=== PATIENT | male | born 1980 | race Caucasian/White ===

== ENCOUNTER 2021-01-14 09:48 | Inpatient (IN) | payer OTHER, SELFPAY ==
[2021-01-14] VITALS (9 sets, daily range): BP systolic 126–142; BP diastolic 83–93; PULSE 101–130; RESP 18–36; TEMP 36.1–37.2; O2SAT 85–99
--- NOTE | ~2021-01-14 | CT_ITS ---
EXAMINATION: CTA chest PE protocol DATE: 01/14/2021 11:36 INDICATION: COVID positive. Shortness of breath. Elevated d-dimer. TECHNIQUE: Computed tomography (CT) pulmonary angiogram of the chest was performed with 100 mL Omnipa que-350 intravenous contrast. Additional 3D reconstructions utilizing coronal maximum intensity proje ction (MIP) were performed. Automated exposure control and iterative reconstruction technique were em ployed. The dose-length product was 927.37 mGy-cm. COMPARISON: None FINDINGS: Good contrast opacification of the pulmonary arteries. There is moderate streak artifact from dense c ontrast in the superior vena cava and right atrium. Mild scattered respiratory motion artifact which does not significantly limit evaluation. No pulmonary embolism. Bilateral patchy groundglass opacitie s with peripheral and lower lung predominance with appearance most suspicious for COVID pneumonia. No pleural effusion or pneumothorax. Heart size is normal. No pericardial effusion. Thoracic aorta is n ormal in caliber with no dissection. Mild bilateral hilar and mediastinal lymphadenopathy which is li jakub reactive. Diffuse hepatic steatosis. Large calcified gallstone near the neck of the normal-appea ring gallbladder with no wall thickening or pericholecystic inflammatory change to suggest acute chol ecystitis. Moderate thoracic spondylosis. IMPRESSION: 1. No pulmonary embolism. 2. Diffuse peripheral and lower lung predominant patchy groundglass opacities with appearance most french spicious for COVID pneumonia. Pulmonary edema considered less likely. 3. Mild likely reactive mediastinal and bilateral hilar lymphadenopathy. 4. Cholelithiasis. 5. Diffuse hepatic steatosis. Reviewed, dictated and finalized at location B. PERSON IMPRESSION: 1. No pulmonary embolism. 2. Diffuse peripheral and lower lung predominant patchy groundglass opacities w ith appearance most suspicious for COVID pneumonia. Pulmonary edema considered less likely. 3. Mild likely reactive mediastinal and bilateral hilar lymphadenopathy. 4. Cholelithiasis. 5. Diffuse hepatic steatosis.
--- NOTE | 2021-01-14 10:07 | ECG_ITS ---
Measurements Intervals [place] Rate: 117 P: 16 RI: 141 QRS: -39 QRSD: 95 T: 10 QT: 307 QTc: 430 Interpretive Statements SINUS TACHYCARDIA LEFT AXIS DEVIATION POOR R WAVE PROGRESSION, ANTERIOR LEADS BORDERLINE T WAVE ABNORMALITY- INFERIOR LEADS ABNORMAL ECG Electronically Signed On 01-14-2021 16:30:24 [employer] by Rodolfo Rain D.O.
[2021-01-14 10:28] LABS: Basophils Percent Auto 0.3 % (0.2-1.2); Eosinophils Percent Auto 0.3 % (0-4.4); Hematocrit 49.1 % (42.0-52.0); Hemoglobin 16.4 g/dL (14.0-18.0); Immature Granulocyte Absolute 0.15 K/mm3 (0.00-0.031); Immature Granulocyte Percent A 1.3 % (0-0.5); Lymphocytes Absolute Auto 1.42 K/mm3 (0.9-3.2); Lymphocytes Percent Auto 11.9 % (18.3-44.2); Mean Corpuscular HGB Conc 33.4 g/dl (32-36); Mean Corpuscular Hemoglobin 28.2 pg (26-34); Mean Corpuscular Volume 84.5 fl (80-100); Mean Platelet Volume 10.6 fl (7.4-10.4); Monocytes Absolute Auto 0.8 K/mm3 (0.1-0.6); Monocytes Percent Auto 6.4 % (2.6-8.5); Neutrophils Absolute Auto 9.5 K/mm3 (1.3-6.7); Neutrophils Percent Auto 79.8 % (45.5-73.1); Platelet Count Result 230 k/mm3 (150-375); Red Blood Count 5.81 M/mm3 (4.6-6.20); Red Cell Distribution Width 13.8 % (11.5-14.5); White Blood Count 11.9 K/mm3 (4.5-10.0)
[2021-01-14 10:39] LABS: INR 0.9; Prothrombin Time 12.3 Seconds (11.1-14.7)
[2021-01-14 10:45] LABS: Alanine Aminotransferase 40 U/L (4-50); Albumin Level 4.1 g/dL (3.5-5.1); Alkaline Phosphatase 85 U/L (38-126); Anion Gap 15 mmol/L (8-16); Aspartate Amino Transferase 75 U/L (17-59); Bilirubin,Total 0.6 mg/dL (0.2-1.3); Blood Urea Nitrogen 18 mg/dL (9-20); Calcium 8.7 mg/dL (8.4-10.2); Carbon Dioxide 20 mmol/L (22-30); Chloride 103 mmol/L (98-107); Estimated CRCL calculation 110 ml/min; Estimated Glomerular Filt Rate > 60; Glucose 142 mg/dL (65-110); Potassium 3.7 mmol/L (3.4-5.0); Sodium 138 mmol/L (137-145)
[2021-01-14 11:10] LABS: Partial Thromboplastin Time 34.8 SECONDS (22.3-36.8)
[2021-01-14 11:12] LABS: D Dimer 1.89 ug/mL (<0.48)
[2021-01-14 11:31] LABS: Lactic Acid Reflex 1.4 mmol/L (0.7-2.1)
[2021-01-14 11:39] LABS: Lactate Dehydrogenase 2266 U/L (313-618)
--- NOTE | 2021-01-14 12:26 | ED.SOB ---
HPI - SOB/Dyspnea General Chief Complaint: Shortness of Breath/Dyspnea Stated Complaint: COVID + Time Seen by Provider: 01/14/21 10:16 Source: patient Mode of arrival: ambulatory Limitations: no limitations History of Present Illness HPI Narrative: This is a 40-year-old male that presents to the emergency department for shortness of breath ongoing over the last couple of days. Reports he tested positive for Covid on 01/09 at a [facility] in [place]. He has had symptoms for about a week and a half. He is not Covid vaccinated. Reports cough, congestion, shortness of breath. Denies fever, chest pain, or lower extremity edema. Related Data Home Medications Medication Instructions Recorded Confirmed No Home Medications 01/14/21 01/14/21 Allergies Allergy/AdvReac Type Severity Reaction Status Date / Time No Known Allergies Allergy Verified 01/14/21 10:15 Review of Systems Review of Systems: CONSTITUTIONAL: Denies fever ENT: Reports rhinorrhea, congestion, sore throat CARDIOVASCULAR: Denies chest pain, or edema. RESPIRATORY: Reports cough and dyspnea. All systems reviewed & are unremarkable except as noted in HPI and below PMFSH Past Medical History Medical History (Updated 01/14/21 @ 15:26 by Allyn Arenas PA-C) No active medical problems Social History Social History (Updated 01/14/21 @ 12:44 by Allyn Arenas PA-C) Smoking status: Never smoker Exam Narrative: GENERAL: Well-appearing, well-nourished, and in no acute distress. HEAD: Normocephalic, atraumatic. EYES: EOMI. ENT: Nares clear, no rhinorrhea or epistaxis. Mucous membranes moist. Oropharynx without tonsillar hypertrophy exudate or other lesions. Bilateral TMs pearly hawkins non-bulging NECK: Supple. No adenopathy or masses. CHEST: Rales noted at the lung bases. No respiratory distress. No wheezes or rhonchi HEART: Tachycardic, regular rhythm. No murmur heard. Normal peripheral pulses. ABDOMEN: Soft, nontender, nondistended, normal active bowel sounds. EXTREMITIES: Normal range of motion. No edema. SKIN: Warm, dry, no rash. NEURO: No focal deficits. Alert and oriented x3. PSYCH: Normal mood and affect Course Consultations Consultation #1: Spoke with hospitalist about patient and workup who accepts admission Date: 01/14/21 Vital Signs Vital signs: Vital Signs Temperature 98.9 F 01/14/21 09:53 Pulse Rate 130 H 01/14/21 09:53 Respiratory Rate 36 H 01/14/21 09:53 Blood Pressure 134/89 01/14/21 09:53 Pulse Oximetry 85 L 01/14/21 09:53 Temperature 98.9 F 01/14/21 09:53 Pulse Rate 112 H 01/14/21 12:31 Respiratory Rate 18 01/14/21 12:31 Blood Pressure 126/83 01/14/21 12:31 Pulse Oximetry 99 01/14/21 12:31 MDM - SOB/Dyspnea MDM Narrative Medical decision making narrative: Patient presents to the emergency department Covid positive with shortness of breath. Patient is afebrile and nontoxic appearing. Noted to be hypoxic on room air on arrival. Placed on 4L NC with improvement. CBC with mild leukocytosis to 11.9. Metabolic panel with mild transaminitis. LDH and ferritin elevated. Lactic acid is normal. EKG shows sinus tachycardia, no acute ST changes. D-dimer was elevated, so CTA of the chest was obtained. This is without evidence of pulmonary embolism. Shows diffuse peripheral and lower lung predominant patchy groundglass opacities consistent with Covid pneumonia. Shows reactive lymphadenopathy. Shows cholelithiasis and diffuse hepatic steatosis. Patient was updated on case findings. Started on dexamethasone and remdesivir. Will be admitted for further management of Covid pneumonia with hypoxia. Spoke with hospitalist about patient and workup who accepts admission Lab Data Attestation: I reviewed the patient's lab results. Result diagrams: 01/14/21 10:13 01/14/21 10:13 Labs: Lab Results 01/14/21 01/14/21 01/14/21 Range/Units 10:13 10:13 10:13 WBC 11.9 H (4.5-10.0)
[2021-01-14] MEDS: DEXAMETHASONE 2 MG TABLET 6 MG PO (12:43)
[2021-01-14] MEDS: REMDESIVIR 200 MG/NS 250 ML 200 MG/250 ML BAG 250 MG IVPB (13:04)
[2021-01-14] MEDS: SODIUM CHLORIDE 0.9% IV 500 ML 999 ML IV CONT (14:05)
--- NOTE | 2021-01-14 16:04 | ADMGEN ---
This patient, Federico Stallworth, was admitted to [facility] Room 300-01. Patient/family oriented to hospital policies and general routines including ID bracelet, bed and alarms, visiting hours, pain management, procedures, bathroom and other care routines, personal items, smoking policy, room service/diet, and visiting hours. Information on how to activate the Rapid Response Team has been discussed. Patient/Family are encouraged to report perceived risks to care and to ask questions if they do not understand what they are told or what they should do. Patient in bed resting comfortably at this time with no complaints. Will continue to monitor.
--- NOTE | 2021-01-14 18:00 | PM.IMHP ---
H&P: HPI History of Present Illness Date/Time: 01/14/21 18:00 Chief Complaint: Shortness of breath, COVID positive. Narrative: This is a 40-year-old male with no significant medical history who tested positive for COVID 19 on 01/09/2021 at [facility] who presented to the emergency department earlier today with complaints of shortness of breath. He has not been feeling well for approximately 1 week with a nagging cough occasionally productive of clear phlegm, decreased appetite, significant fatigue, and some loose stools. He has been taking NyQuil at night time which help somewhat with his sleep though he continues to have a pretty neg in cough. Over the last couple of days he has been feeling short of breath and his mom encouraged him to come to the ER today as she is also battling COVID and is being admitted to an outside facility for COVID pneumonia. On arrival to the emergency department his SpO2 was 85% on room air and he is currently requiring 3 L nasal cannula to maintain his oxygen saturations in the mid 90s. Chest CTA showed no evidence of pulmonary embolism but did note diffuse peripheral and lower lung predominant opacities suspicious for COVID pneumonia and he is being admitted in this setting. He denies fever, chills, sweats, chest pain, pleuritic pain, and vomiting. He did not receive the COVID vaccination. Review of Systems Review of Systems: Twelve systems were reviewed. No headache or neck ache. No anosmia or dysgeusia. He has had a decrease in appetite however. No nausea or vomiting. Some loose stools. No orthopnea, PND, or lower extremity edema. Except as documented, all other systems were reviewed and are negative. [facility] Past Medical History Medical History (Updated 01/14/21 @ 21:05 by Tati Johnson PA-C) Hepatic steatosis Diffuse hepatic steatosis noted CT on 01/14/2021. No active medical problems Surgical History Surgical History (Updated 01/14/21 @ 20:56 by Tati Johnson PA-C) No history of previous surgery Family History Family History Mother Diabetes mellitus Social History Social History (Updated 01/14/21 @ 20:57 by Tati Johnson PA-C) Social History: Surrogate decision maker: Jorge (father) or Davon (brother) Albajermainejerri. Code status: Full code. Smoking status: Never smoker Alcohol intake: never Substance use: never Substance use type: does not use Additional living arrangements comments: The patient lives in his own home in [place]. 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 Meds Home Medications and Allergies Home Medications Medication Instructions Recorded Confirmed Type No Home Medications 01/14/21 01/14/21 History Allergies Allergy/AdvReac Type Severity Reaction Status Date / Time No Known Allergies Allergy Verified 01/14/21 10:15 Vital Signs Vital Signs - 24 hr 01/14/21 09:53 01/14/21 10:06 01/14/21 10:14 Temperature 98.9 F Pulse Rate 130 H 121 H Respiratory Rate 36 H 31 H Blood Pressure 134/89 139/93 H Pulse Oximetry 85 L 93 93 01/14/21 12:31 01/14/21 16:11 01/14/21 16:25 Temperature Pulse Rate 112 H 112 H Respiratory Rate 18 Blood Pressure 126/83 Pulse Oximetry 99 91 01/14/21 16:45 01/14/21 20:00 Temperature 97.0 F L 99.0 F Pulse Rate 110 H 103 H Respiratory Rate 20 18 Blood Pressure 133/83 132/90 Pulse Oximetry 91 94 Exam Narrative: General: Mildly ill-appearing male supine in bed. Weight: 108.6 kg. BMI: 32.5. HEENT: PERRL, EOMI. Sclerae anicteric. Tacky mucous membranes. Neck: Supple. No adenopathy or JVD. Respiratory: Respirations are nonlabored. He has coarse crackles at the bases. Cardiovascular: Tachycardic, sinus. No murmur, rub, or gallop. Gastrointestinal: Abdomen is soft, nontender, and nondistended with positive bowel sounds. Skin: Warm and dry. No rash or lesions on limited exam. Extremit
[2021-01-15] VITALS (11 sets, daily range): BP systolic 114–145; BP diastolic 84–90; PULSE 86–140; RESP 17–20; TEMP 36.4–37.2; O2SAT 92–96
[2021-01-15 06:56] LABS: Hematocrit 45.6 % (42.0-52.0); Mean Corpuscular HGB Conc 32.9 g/dl (32-36); Mean Corpuscular Hemoglobin 27.9 pg (26-34); Mean Corpuscular Volume 84.9 fl (80-100); Mean Platelet Volume 10.9 fl (7.4-10.4); Platelet Count Result 287 k/mm3 (150-375); Red Blood Count 5.37 M/mm3 (4.6-6.20); Red Cell Distribution Width 13.7 % (11.5-14.5)
[2021-01-15 07:06] LABS: Prothrombin Time 13.3 Seconds (11.1-14.7)
[2021-01-15 07:20] LABS: Alanine Aminotransferase 38 U/L (4-50); Albumin Level 3.8 g/dL (3.5-5.1); Alkaline Phosphatase 76 U/L (38-126); Anion Gap 12 mmol/L (8-16); Aspartate Amino Transferase 57 U/L (17-59); Bilirubin,Total 0.5 mg/dL (0.2-1.3); Blood Urea Nitrogen 20 mg/dL (9-20); Calcium 8.8 mg/dL (8.4-10.2); Carbon Dioxide 23 mmol/L (22-30); Chloride 103 mmol/L (98-107); Estimated CRCL calculation 136 ml/min; Estimated Glomerular Filt Rate > 60; Glucose 114 mg/dL (65-110); Lactate Dehydrogenase 1694 U/L (313-618); Magnesium 2.6 mg/dL (1.6-2.3); Potassium 4.1 mmol/L (3.4-5.0); Sodium 138 mmol/L (137-145)
[2021-01-15 07:41] LABS: CRP 10.8 mg/dL (<1.0)
[2021-01-15] MEDS: DEXAMETHASONE 2 MG TABLET 6 MG PO (08:17)
[2021-01-15] MEDS: ENOXAPARIN 40 MG/0.4 ML SYRINGE SUB-Q (08:17)
[2021-01-15] MEDS: REMDESIVIR 100 MG/NS 250 ML 100 MG/250 ML BAG 250 MG IVPB (10:27)
--- NOTE | 2021-01-15 14:52 | PM.IMPN ---
Progress Note: A&P Assessment and Plan (1) Acute respiratory failure with hypoxia: Code(s): J96.01 - Acute respiratory failure with hypoxia Status: Acute Assessment and Plan: Secondary to COVID pneumonia. No evidence of pulmonary embolism on CTA of the chest. Wean oxygen as tolerated. (2) 2019 novel coronavirus-infected pneumonia (NCIP): Code(s): U07.1 - COVID-19; J12.82 - Pneumonia due to coronavirus disease 2019 Status: Acute Assessment and Plan: Patient did pull up his my chart on [employer] on his phone and I was able to see the positive COVID test obtained on 01/09/2021. Remdesivir and dexamethasone begun 01/14 (3) Hepatic steatosis: Code(s): K76.0 - Fatty (change of) liver, not elsewhere classified Status: Acute Assessment and Plan: Diffuse hepatic steatosis noted on imaging 01/14 Subjective Date/time seen: 01/15/21 14:52 Interval history: 01/15 visit: Cough a little less. Denied pain. Denied GI upset. Taste and smell a little better. Appetite improved. Fatigued. Review of Systems Review of Systems: All systems reviewed & are unremarkable except as noted in HPI and below Exam Narrative: General: Mildly ill-appearing male supine in bed. Weight: 108.6 kg. BMI: 32.5. HEENT: PERRL, EOMI. Sclerae anicteric. Tacky mucous membranes. Neck: Supple. No adenopathy or JVD. Respiratory: Respirations are nonlabored. Minimal bibasilar crackles Cardiovascular: Regular rate and rhythm. No murmur, rub, or gallop. Gastrointestinal: Abdomen is soft, nontender, and nondistended with positive bowel sounds. Skin: Warm and dry. No rash or lesions on limited exam. Extremities: No cyanosis, clubbing, or edema. Radial and pedal pulses intact. Neurological: Alert. Cranial nerves 2-12 are grossly intact to inspection Psychiatric: Pleasant and cooperative with normal mood and affect. Objective Data Vital Signs Vital Signs: Vital Signs - 24 hr 01/14/21 16:11 01/14/21 16:25 01/14/21 16:45 Temperature 97.0 F L Pulse Rate 112 H 110 H Respiratory Rate 20 Blood Pressure 133/83 Pulse Oximetry 91 91 01/14/21 20:00 01/14/21 23:29 01/15/21 00:00 Temperature 99.0 F 98.5 F Pulse Rate 104 H 101 H 97 Respiratory Rate 18 18 Blood Pressure 132/90 142/85 H Pulse Oximetry 94 94 01/15/21 03:49 01/15/21 04:00 01/15/21 08:00 Temperature 98.2 F Pulse Rate 97 108 H Respiratory Rate 20 Blood Pressure 145/84 H Pulse Oximetry 92 93 01/15/21 08:21 01/15/21 12:29 Temperature 97.6 F 98.3 F Pulse Rate 106 H 101 H Respiratory Rate 18 17 Blood Pressure 145/90 H 138/85 Pulse Oximetry 93 93 Intake/Output Intake/Output: Intake & Output 01/12/21 01/13/21 01/14/21 01/15/21 23:59 23:59 23:59 23:59 Intake Total 1300 1220 Output Total 1000 Balance 1300 220 Meds/Results Medications: Active Medications Generic Name Dose Route Start Last Admin Trade Name Freq PRN Reason Stop Dose Admin Albuterol 2 puff 01/14/21 21:06 Albuterol Sulfate (*Sp) Aerosol 1 Puff INHALATION QIDRT PRN Shortness Of Breath Dexamethasone 6 mg 01/15/21 08:00 01/15/21 08:17 Dexamethasone 2 Mg Tablet PO 01/24/21 08:01 6 mg DAILY@0800 JESUS Administration Enoxaparin Sodium 40 mg 01/15/21 09:00 01/15/21 08:17 Enoxaparin 40 Mg/0.4 Ml Syringe SUB-Q 40 mg DAILY JESUS Administration Remdesivir 100 mg in 250 mls @ 250 mls/hr 01/15/21 10:00 01/15/21 12:27 IVPB 01/18/21 10:59 Infused Q24H JESUS Infusion Radiology Results: ITS Impressions Chest CTA 01/14/21 11:37 IMPRESSION: 1. No pulmonary embolism. 2. Diffuse peripheral and lower lung predominant patchy groundglass opacities with appearance most suspicious for COVID pneumonia. Pulmonary edema considered less likely. 3. Mild likely reactive mediastinal and bilateral hilar lymphadenopathy. 4. Cholelithiasis. 5. Diffuse hepatic steatosis. Labs Labs: Labo
[2021-01-16] VITALS (7 sets, daily range): BP systolic 121–138; BP diastolic 59–87; PULSE 80–100; RESP 18–24; TEMP 36–37; O2SAT 91–94
[2021-01-16 06:28] LABS: INR 0.9; Prothrombin Time 12.5 Seconds (11.1-14.7)
[2021-01-16 06:31] LABS: Alanine Aminotransferase 43 U/L (4-50); Estimated CRCL calculation 136 ml/min; Estimated Glomerular Filt Rate > 60
--- NOTE | 2021-01-16 09:21 | PM.IMPN ---
Progress Note: A&P Assessment and Plan (1) Acute respiratory failure with hypoxia: Code(s): J96.01 - Acute respiratory failure with hypoxia Status: Acute Assessment and Plan: Secondary to COVID pneumonia. No evidence of pulmonary embolism on CTA of the chest. Wean oxygen as tolerated. (2) 2019 novel coronavirus-infected pneumonia (NCIP): Code(s): U07.1 - COVID-19; J12.82 - Pneumonia due to coronavirus disease 2019 Status: Acute Assessment and Plan: Patient did pull up his my chart on [employer] on his phone and I was able to see the positive COVID test obtained on 01/09/2021. Remdesivir and dexamethasone begun 01/14 (3) Hepatic steatosis: Code(s): K76.0 - Fatty (change of) liver, not elsewhere classified Status: Acute Assessment and Plan: Diffuse hepatic steatosis noted on imaging 01/14 Subjective Date/time seen: 01/16/21 09:21 Interval history: 01/16 visit: Cough mild. Denied pain. Denied GI upset. Taste and smell mildly impaired. Appetite fair. Fatigued. Concerned about his parents who both have COVID-19. Mother was transferred to ICU and intubated. Review of Systems Review of Systems: All systems reviewed & are unremarkable except as noted in HPI and below Exam Narrative: General: Mildly ill-appearing male supine in bed. Weight: 108.6 kg. BMI: 32.5. HEENT: PERRL, EOMI. Sclerae anicteric. Tacky mucous membranes. Neck: Supple. No adenopathy or JVD. Respiratory: Respirations are nonlabored. Minimal bibasilar crackles Cardiovascular: Regular rate and rhythm. No murmur, rub, or gallop. Gastrointestinal: Abdomen is soft, nontender, and nondistended with positive bowel sounds. Skin: Warm and dry. No rash or lesions on limited exam. Extremities: No cyanosis, clubbing, or edema. Radial and pedal pulses intact. Neurological: Alert. Cranial nerves 2-12 are grossly intact to inspection Psychiatric: Pleasant and cooperative with normal mood and affect. Objective Data Vital Signs Vital Signs: Vital Signs - 24 hr 01/15/21 12:00 01/15/21 12:29 01/15/21 16:00 Temperature 98.3 F Pulse Rate 140 H 101 H 101 H Respiratory Rate 17 Blood Pressure 138/85 Pulse Oximetry 93 01/15/21 16:49 01/15/21 20:00 01/15/21 23:47 Temperature 97.6 F 98.9 F 98.6 F Pulse Rate 102 H 95 86 Respiratory Rate 18 20 18 Blood Pressure 141/87 H 114/84 130/87 Pulse Oximetry 96 94 93 01/16/21 04:00 01/16/21 08:00 Temperature 98.6 F 96.8 F L Pulse Rate 80 87 Respiratory Rate 18 24 H Blood Pressure 132/87 131/59 L Pulse Oximetry 94 93 Intake/Output Intake/Output: Intake & Output 01/13/21 01/14/21 01/15/21 01/16/21 23:59 23:59 23:59 23:59 Intake Total 1300 2015 250 Output Total 1000 Balance 1300 1015 250 Meds/Results Medications: Active Medications Generic Name Dose Route Start Last Admin Trade Name Freq PRN Reason Stop Dose Admin Albuterol 2 puff 01/14/21 21:06 Albuterol Sulfate (*Sp) Aerosol 1 Puff INHALATION QIDRT PRN Shortness Of Breath Dexamethasone 6 mg 01/15/21 08:00 01/15/21 08:17 Dexamethasone 2 Mg Tablet PO 01/24/21 08:01 6 mg DAILY@0800 JESUS Administration Enoxaparin Sodium 40 mg 01/15/21 09:00 01/15/21 08:17 Enoxaparin 40 Mg/0.4 Ml Syringe SUB-Q 40 mg DAILY JESUS Administration Remdesivir 100 mg in 250 mls @ 250 mls/hr 01/15/21 10:00 01/15/21 12:27 IVPB 01/18/21 10:59 Infused Q24H JESUS Infusion Radiology Results: ITS Impressions Chest CTA 01/14/21 11:37 IMPRESSION: 1. No pulmonary embolism. 2. Diffuse peripheral and lower lung predominant patchy groundglass opacities with appearance most suspicious for COVID pneumonia. Pulmonary edema considered less likely. 3. Mild likely reactive mediastinal and bilateral hilar lymphadenopathy. 4. Cholelithiasis. 5. Diffuse hepatic steatosis. Labs Labs: Laboratory Results - last 24 hr 01/16/21 01/16/21 05:56 05
[2021-01-16] MEDS: REMDESIVIR 100 MG/NS 250 ML 100 MG/250 ML BAG 250 MG IVPB (12:05)
[2021-01-16] MEDS: DEXAMETHASONE 2 MG TABLET 6 MG PO (12:05)
[2021-01-16] MEDS: ENOXAPARIN 40 MG/0.4 ML SYRINGE SUB-Q (12:05)
[2021-01-17] VITALS (8 sets, daily range): BP systolic 127–144; BP diastolic 81–92; PULSE 90–129; RESP 16–18; TEMP 36.2–37.2; O2SAT 89–95
--- NOTE | 2021-01-17 08:00 | PM.DS ---
DS: Admitting Diagnosis Discharge Date DOS: 01/17/21 at 08:00 Admitting Diagnosis Covid 19 DS: Discharge Diagnosis Discharge Diagnosis (1) Acute respiratory failure with hypoxia: Code(s): J96.01 - Acute respiratory failure with hypoxia Status: Acute Assessment and Plan: Secondary to COVID pneumonia. No evidence of pulmonary embolism on CTA of the chest. Wean oxygen as tolerated. Dimer: 0.61, LDH: 1028, CRP 3.3 (2) 2019 novel coronavirus-infected pneumonia (NCIP): Code(s): U07.1 - COVID-19; J12.82 - Pneumonia due to coronavirus disease 2019 Status: Acute Assessment and Plan: Patient did pull up his my chart on [employer] on his phone and I was able to see the positive COVID test obtained on 01/09/2021. Remdesivir and dexamethasone begun 01/14 (3) Hepatic steatosis: Code(s): K76.0 - Fatty (change of) liver, not elsewhere classified Status: Acute Assessment and Plan: Diffuse hepatic steatosis noted on imaging 01/14 DS: Summary Hospital Course Hospital Course: Patient is a 40 year old male with a past medical history of hepatic steatosis who presented to the ED with complaints of shortness of breath. Patient stated that he tested positive for COVID on 01/09/2021. Since admission patient was treated with IV remdesivir and Decadron. Supplemental oxygen was given to maintain saturations. Patient was weaned down to room air and has been able to maintain saturation on room air. Inflammatory markers have been elevated including a D-dimer which was 1.6 to upon admission is trending down currently. CTA was obtained which showed no pulmonary embolism. Chest x-ray and CT able showed diffuse lung disease consistent COVID. Patient still has a cough. Patient did state that his shortness of breath has subsided and he is able to get of bed without needing to rest to breathe. Patient states that he feels good and that he is ready to go home. Patient denies sweats, fevers, chills, abdominal pain, nausea, vomiting. Patient did state that he was eating okay. Patient does seem to have a little anxiety is his mother and father in the hospital as well for COVID. Patient was able to talk to his dad yesterday however his mother was transferred to ICU where she was intubated and proned. Patient is updated with the plan of care and has agreed. All questions have been answered. Education was given about care of self at home. Talked to Jelly from General surgery who is aware of the gallstones and stated patient can follow up outpatient since he is not having any problems at this time. Status at Discharge Functional status at discharge: independent ambulation Overall status at discharge: patient is progressing back to baseline Time Spent with Patient Time attestation: Total time spent providing and/or coordinating discharge services: 43 minutes Time spent: Greater than 30 minutes Exam Const: General: cooperative, healthy appearing, no acute distress, well developed, alert and awake Nutritional Appearance: well nourished Orientation/consciousness: oriented to person, oriented to place, oriented to time and patient oriented x3 Limitations: no limitations HENMT: Head: normal to inspection Ears: hearing grossly normal bilaterally General nose exam: Normal external nose present Mouth: Yes Normal oral and palatal mucosa present, Yes lip normal and Yes tongue normal Teeth and gingiva: abnormal tooth and associated gingiva and poor dentition Eyes: General: appearance normal, both eyes and all related structures Neck: Neck: normal visual inspection, full ROM, trachea midline and supple Chest: Chest palpation & inspection: normal inspection of the chest Resp: Effort & Inspection: normal respiratory effort and able to speak in complete sentences Auscultation: clear to auscultation bilaterally and diminished lung sounds bilateral in the lower lung mccarthy Cardio: Jugular venous distension: no JVD R
[2021-01-17] MEDS: DEXAMETHASONE 2 MG TABLET 6 MG PO (08:24)
[2021-01-17] MEDS: ENOXAPARIN 40 MG/0.4 ML SYRINGE SUB-Q (08:25)
[2021-01-17 08:41] LABS: Hematocrit 44.8 % (42.0-52.0); Hemoglobin 14.5 g/dL (14.0-18.0); Mean Corpuscular HGB Conc 32.4 g/dl (32-36); Mean Corpuscular Hemoglobin 27.3 pg (26-34); Mean Corpuscular Volume 84.2 fl (80-100); Mean Platelet Volume 10.1 fl (7.4-10.4); Platelet Count Result 425 k/mm3 (150-375); Red Blood Count 5.32 M/mm3 (4.6-6.20); Red Cell Distribution Width 13.5 % (11.5-14.5); White Blood Count 10.3 K/mm3 (4.5-10.0)
[2021-01-17 08:53] LABS: Prothrombin Time 12.9 Seconds (11.1-14.7)
[2021-01-17 08:56] LABS: D Dimer 0.61 ug/mL (<0.48)
[2021-01-17 08:59] LABS: NT Pro B Type Natriuretic Pept 88 pg/mL (5-100)
[2021-01-17 09:23] LABS: Alanine Aminotransferase 75 U/L (4-50); Albumin Level 3.7 g/dL (3.5-5.1); Alkaline Phosphatase 66 U/L (38-126); Anion Gap 8 mmol/L (8-16); Aspartate Amino Transferase 60 U/L (17-59); Bilirubin,Total 0.5 mg/dL (0.2-1.3); Blood Urea Nitrogen 20 mg/dL (9-20); CRP 3.3 mg/dL (<1.0); Calcium 8.7 mg/dL (8.4-10.2); Carbon Dioxide 28 mmol/L (22-30); Chloride 102 mmol/L (98-107); Estimated CRCL calculation 136 ml/min; Estimated Glomerular Filt Rate > 60; Glucose 96 mg/dL (65-110); Lactate Dehydrogenase 1028 U/L (313-618); Sodium 138 mmol/L (137-145)
[2021-01-17] MEDS: REMDESIVIR 100 MG/NS 250 ML 100 MG/250 ML BAG 250 MG IVPB (10:44)
--- NOTE | 2021-01-17 12:08 | HOMEO2EVAL ---
Evaluation was performed at [facility] Home Oxygen Evaluation RC: Home Oxygen (O2) Evaluation Start: 01/17/21 09:50 Freq: ONCE Status: Active Protocol: RPE Activity Type Activity Date Activity User E-Sign Co-Sign Detail Recorded Client Recorded Date Recorded By Document 01/17/21 11:20 VALENTINA [email or web address] 01/17/21 12:08 KLA Document 01/17/21 11:25 VALENTINA [email or web address] 01/17/21 12:08 KLA Document 01/17/21 11:30 VALENTINA [email or web address] 01/17/21 12:08 KLA 01/17/21 01/17/21 01/17/21 11:20 11:25 11:30 Home O2 Evaluation Test Phase Resting Exercise Resting Oxygen Delivery Room Air Room Air Room Air Pulse Oximetry (90-100 %) 93 89 L 90 Pulse Rate (60-100 beats/min) 99 129 H 101 H Activity Tolerance Good Treatment Charges O2 Evaluation - Inpatient
--- NOTE | 2021-01-17 12:09 | PCRCNOTE ---
Home oxygen evaluation completed. Patient does not require home oxygen.
== END 2021-01-17 17:05 | disposition home or self-care (01) | DRG 177 ==
LOC: ANHED 11:35 → ANH2MED 13:32 → ANH3MEDSUR 14:58
PROVIDERS: Internal Medicine; Physician Assistant; Admitting Provider Internal Medicine; Emergency Provider Emergency Medicine; Visit Provider Nurse Practitioner
DX: U07.1 COVID-19 (principal); J12.82 Pneumonia due to coronavirus disease 2019; J96.01 Acute respiratory failure with hypoxia; K76.0 Fatty (change of) liver, not elsewhere classified; Z28.21 Immunization not carried out because of patient refusal
CPT/HCPCS: 36415; 71275; 80053; 82565; 82728; 83605; 83615; 83735; 83880; 84460; 85025; 85027; 85380; 85610; 85730; 86140; 93005; 94618; 96365; 99285; G0378; J1650; J7040; J8540; Q9967